=== PATIENT | female | born 1975 | race African-American/Black ===

== ENCOUNTER 2016-10-11 10:49 | Observation (INO) | payer OTHER ==
[2016-10-11 10:58] VITALS: BMI 23.8
[2016-10-11] MEDS ORDERED: Sodium Chloride 0.9% 1,000 ML IV SCH (11:15)
--- NOTE | 2016-10-11 11:23 | ED PDOC ---
HPI: Abdomen Time Seen by Provider: 10/11/16 11:05 Chief Complaint (Nursing): Abdominal Pain Chief Complaint (Provider): Abdominal Pain History Per: Patient History/Exam Limitations: no limitations Onset/Duration Of Symptoms: Hrs Current Symptoms Are (Timing): Still Present Severity: Mild Location Of Pain/Discomfort: RUQ, Epigastric Quality Of Discomfort: "Pain" Associated Symptoms: Nausea. denies: Urinary Symptoms Exacerbating Factors: None Alleviating Factors: None Additional Complaint(s): Patient is a 41 year old female who presents to ED for evaluation of upper abdominal cramps this morning after eating breakfast. Notes similar symptoms 1 week ago with spontaneous resolution. States she feels like there is gas in her esophagus. Reports pain is RUQ and epigastric, intermittent in nature and a 7/ 10 with no relief from Tums. Past Medical History Reviewed: Historical Data, Nursing Documentation, Vital Signs Vital Signs: Last Vital Signs Temp 98.1 F 10/11/16 10:56 Pulse 63 10/11/16 10:56 Resp 16 10/11/16 10:56 BP 120/75 10/11/16 10:56 Pulse Ox 100 10/11/16 13:02 - Medical History PMH: No Chronic Diseases - Surgical History Surgical History: No Surg Hx - Family History Family History: States: Other - Living Arrangements Living Arrangements: With Family - Social History Current smoker - smoking cessation education provided: No Alcohol: None Drugs: Denies - Allergies Allergies/Adverse Reactions: Allergies Allergy/AdvReac Type Severity Reaction Status Date / Time No Known Allergies Allergy Verified 10/11/16 11:10 Review of Systems ROS Statement: Except As Marked, All Systems Reviewed And Found Negative Constitutional: Negative for: Fever Gastrointestinal: Positive for: Nausea, Abdominal Pain. Negative for: Vomiting , Diarrhea Genitourinary Female: Negative for: Dysuria, Hematuria Musculoskeletal: Negative for: Neck Pain, Back Pain Neurological: Negative for: Weakness, Numbness Physical Exam - Reviewed Nursing Documentation Reviewed: Yes Vital Signs Reviewed: Yes - Physical Exam Appears: Positive for: Non-toxic, No Acute Distress Skin: Positive for: Normal Color, Warm Eye Exam: Positive for: Normal appearance Neck: Positive for: Normal, Painless ROM Cardiovascular/Chest: Positive for: Regular Rate, Rhythm. Negative for: Murmur Respiratory: Positive for: Normal Breath Sounds. Negative for: Respiratory Distress Gastrointestinal/Abdominal: Positive for: Soft, Tenderness (RUQ and mid epigastric). Negative for: Distended, Guarding, Rebound Back: Positive for: Normal Inspection. Negative for: L CVA Tenderness, R CVA Tenderness Extremity: Positive for: Normal ROM Neurologic/Psych: Positive for: Alert, Oriented - Laboratory Results Result Diagrams: 10/11/16 11:31 10/11/16 11:31 - ECG O2 Sat by Pulse Oximetry: 100 (RA) Pulse Ox Interpretation: Normal Medical Decision Making Medical Decision Making: Time: 1105 Initial impression: Abdominal pain r/o gallbladder disease Initial plan: -- EKG -- Amylase -- CMP -- Lipase -- NPO diet -- Urine preg -- CBC -- NSF and Pepcid -- U/A -- U/S Scribe Attestation: Documented by Janneth Matias acting as a scribe for Tong Mcgraw MD MD Scribe Attestation: All medical record entries made by the Scribe were at my direction and personally dictated by me. I have reviewed the chart and agree that the record accurately reflects my personal performance of the history, physical exam, medical decision making, and the department course for this patient. I have also personally directed, reviewed, and agree with the discharge instructions and disposition. ED OBSERVATION Date of observation admission: 10/11/16 Time of observation admission: 13:02 - Observation admission statement Patient is being placed in observation because:: Patient is still symptomatic. Needs further evaluation. - Goals of Observation Goals of observation are:: Improvement of symptoms. Need to confirm (by CT) that there is no emergency medical condition Disposition - Clinical Impression Clinical Impression: Undifferentiated abdominal pain - Patient ED Disposition Is Patient to be Admitted: Transfer of Care - Disposition Disposition Time: 15:15 Condition: FAIR Patient Signed Over To: Ashley العلي Handoff Comments: To follow up CT results - POA Present On Arrival: None
[2016-10-11 11:37] LABS: BASO # 0.1 K/uL (0.0-0.2); BASO % 0.5 % (0.0-2.0); EOS # 0.1 K/uL (0.0-0.7); EOS % 0.8 % (0.0-4.0); LYMPH # 1.2 K/uL (1.0-4.3); LYMPH % 9.8 % (20.0-40.0); MEAN CELL VOLUME 84.4 fl (81.0-99.0); MEAN CORPUSCULAR HEMOGLOBIN 27.7 pg (27.0-31.0); MEAN CORPUSCULAR HGB CONC 32.9 g/dL (33.0-37.0); MEAN PLATELET VOLUME 8.7 fl (7.2-11.7); MONO # 0.7 K/uL (0.0-0.8); MONO % 5.8 % (0.0-10.0); NEUT # 10.2 K/uL (1.8-7.0); NEUT % 83.1 % (50.0-75.0); PLATELET COUNT 370 K/uL (130-400); RED CELL DISTRIBUTION WIDTH 13.5 % (11.5-14.5); WHITE BLOOD COUNT 12.2 K/uL (4.8-10.8)
[2016-10-11 11:45] LABS: ALB/GLOB RATIO 1.2 (1.0-2.1); ALKALINE PHOSPHATASE 102 U/L (38-126); ALT/SGPT 51 U/L (9-52); AMYLASE 67 U/L (30-110); AST/SGOT 30 U/L (14-36); BILIRUBIN,TOTAL 0.4 mg/dl (0.2-1.3); BLOOD UREA NITROGEN 9 mg/dl (7-17); CALCIUM 9.4 mg/dL (8.4-10.2); CARBON DIOXIDE 26 mmol/L (22-30); CHLORIDE 101 mmol/L (98-107); GFR AFRICAN-AMERICAN > 60; GLUCOSE,RANDOM 101 mg/dL (65-105); LIPASE 174 U/L (23-300); POTASSIUM 4.2 MMOL/L (3.6-5.0); SODIUM 139 mmol/l (132-148); TOTAL PROTEIN 8.4 G/DL (6.3-8.2)
[2016-10-11 12:01] LABS: NEUTROPHIL 81 % (42-75); TOTAL CELLS COUNTED 100
[2016-10-11 12:16] LABS: RBC URINE 3 /hpf (0-3); URINE BACTERIA RARE (<OCC); URINE BILIRUBIN NEGATIVE (NEGATIVE); URINE BLOOD NEGATIVE (NEGATIVE); URINE COLOR YELLOW (YELLOW); URINE GLUCOSE (UA) NEG (Normal); URINE KETONE NEGATIVE (NEGATIVE); URINE LEUKOCYTE ESTERASE NEG Leu/uL (Negative); URINE PROTEIN NEGATIVE (NEGATIVE); URINE UROBILINOGEN 0.2-1.0 mg/dL (0.2-1.0); WBC URINE 1 /hpf (0-5)
--- NOTE | 2016-10-11 12:53 | US ---
HISTORY: RUQ pain; r/o cholecystitis COMPARISON: None available TECHNIQUE: Sonographic evaluation of the right upper quadrant of the abdomen. FINDINGS: LIVER: Measures 15.9 cm in length. Heterogeneous echogenic echotexture. Suspected focal fatty sparing. The main portal vein appears patent with normal directional flow. No intrahepatic bile duct dilatation. GALLBLADDER: No gallstones. No gallbladder wall thickening or pericholecystic edema. Negative sonographic Jones's sign as assessed by the quick print operator. COMMON BILE DUCT: Measures 4 mm PANCREAS: Not well-visualized. RIGHT KIDNEY: Measures approximately 9.3 x 4.8 x 3.5 cm. No obstructing calculus or hydronephrosis identified. AORTA: Limited visualization appears grossly unremarkable. IVC: Limited visualization appears grossly unremarkable. OTHER FINDINGS: None . IMPRESSION: Heterogeneous echogenic echotexture. Echogenic liver may be seen in setting of hepatic parenchymal disease or fatty infiltration. Suspected focal fatty sparing. No gallstones. No gallbladder wall thickening or pericholecystic edema. Negative sonographic Jones's sign as assessed by the quick print operator.
[2016-10-11] MEDS ORDERED: Iohexol 240 (50 ml) PO ONE (12:59)
[2016-10-11] MEDS ORDERED: Iohexol 240 (50 ml) ONE (13:05)
[2016-10-11] MEDS ORDERED: Sucralfate 1 gm/10 ml Oral Susp UD ONE (14:27)
[2016-10-11] MEDS ORDERED: Sucralfate 1 gm/10 ml Oral Susp UD PO STA (14:29)
--- NOTE | 2016-10-11 15:17 | ED PDOC ---
- Laboratory Results Result Diagrams: 10/11/16 11:31 10/11/16 11:31 - ECG O2 Sat by Pulse Oximetry: 100 (RA) Medical Decision Making Medical Decision Makin: Patient signed over to me from Dr. Mcgraw pending CT; Will follow up with CT and reassess for final ER Dispo. Accession No. : [id number] Patient Name / ID : GREGG HAMM / [id number] Exam Date : 10/11/2016 15:40:21 ( Approved ) Study Comment : Sex / Age : F / 41Y Creator : Annie Caldera MD Dictator : Annie Caldera MD Plugger Man : Dance Hall Host/Hostess : Annie Caldera MD Approver2 : Report Date : 10/11/2016 16:34:23 My Comment : PROCEDURE: CT Abdomen and Pelvis with oral and IV contrast. HISTORY: c/o right upper quadrant mid-abdomen pain COMPARISON: Limited abdominal ultrasound performed 10/11/16 TECHNIQUE: Contiguous axial images of the abdomen and pelvis. Oral and IV contrast was administered. Coronal and Sagittal reformats generated and reviewed. Contrast dose: 90 mL Omnipaque 300 Radiation dose: Total exam DLP = 398.51 mGy-cm. This CT exam was performed using one or more of the following dose reduction techniques: Automated exposure control, adjustment of the mA and/or kV according to patient size, and/or use of iterative reconstruction technique. FINDINGS: LOWER THORAX: No visible consolidation, pleural effusion, or pneumothorax. LIVER: Hypoattenuation of the liver compatible with hepatic steatosis. GALLBLADDER AND BILE DUCTS: Unremarkable. PANCREAS: Unremarkable. SPLEEN: Unremarkable. ADRENALS: Unremarkable. KIDNEYS AND URETERS: The kidneys enhance symmetrically. No hydronephrosis or obstructing renal calculus. BLADDER: Distended urinary bladder appears otherwise grossly unremarkable. REPRODUCTIVE: Uterus is present. Probable small bilateral ovarian follicles/cysts. APPENDIX: A normal appendix is not definitively visualized. BOWEL: The stomach is nondistended. Dilated small bowel loops in the right abdomen with fecalization of the ileum to the level of the ileocecal valve (more proximal small bowel loops within the left abdomen appear decompressed. ; Early mechanical obstruction cannot be excluded. Additionally, there is wall thickening of the cecum/proximal right colon; correlate clinically for possibility of colitis (i.e. infectious, inflammatory, ischemic). PERITONEUM: Small free fluid in the right pericolic gutter. No definite free air. LYMPH NODES: Sub cm right lower quadrant/mesenteric lymph nodes, nonspecific. VASCULATURE: No aortic aneurysm. BONES: Degenerative changes of the spine. Partial fusion of the L4-L5 vertebral bodies. OTHER FINDINGS: None. IMPRESSION: Dilated small bowel loops in the right abdomen with fecalization involving the distal ileum extending the level of the ileocecal valve : Early mechanical obstruction cannot be excluded. Correlate clinically. Wall thickening of the cecum/proximal right colon; correlate clinically for colitis (i.e. infectious, inflammatory, ischemic). Small fluid in the right pericolic gutter. Probable bilateral ovarian follicles/cysts. Hepatic steatosis. Sub cm right lower quadrant/mesenteric lymph nodes, nonspecific. Additional findings as above. Findings discussed with Dr. Reyes on 10/11/16 at 4:20 p.m. 430p DW pt findings. On reevaluation pt is markedly better. Tolerated the PO contrast without difficulty. Abdomen is soft and nontender. Reviewed findings with patient and mandatory GI follow up for possible inflammatory bowel disease. Documented by Carlos Andre acting as a scribe for Ashley العلي MD. Provider Scribe Attestation: All medical record entries made by the Scribe were at my direction and personally dictated by me. I have reviewed the chart and agree that the record accurately reflects my personal performance of the history, physical exam, medical decision making, and the department course for this patient. I have also personally directed, reviewed, and agree with the discharge instructions and disposition. Disposition - Clinical Impression Clinical Impression: Colitis - POA Present On Arrival: None - Disposition Disposition: Routine/Home Disposition Time: 15:00 Condition: IMPROVED
[2016-10-11] MEDS ORDERED: Iohexol 300 100 ML IJ ONE (15:32)
[2016-10-11] MEDS ORDERED: Sodium Chloride 0.9% 50 ML IV ONE (15:32)
--- NOTE | 2016-10-11 16:35 | CT ---
PROCEDURE: CT Abdomen and Pelvis with oral and IV contrast. HISTORY: c/o right upper quadrant mid-abdomen pain COMPARISON: Limited abdominal ultrasound performed 10/11/16 TECHNIQUE: Contiguous axial images of the abdomen and pelvis. Oral and IV contrast was administered. Coronal and Sagittal reformats generated and reviewed. Contrast dose: 90 mL Omnipaque 300 Radiation dose: Total exam DLP = 398.51 mGy-cm. This CT exam was performed using one or more of the following dose reduction techniques: Automated exposure control, adjustment of the mA and/or kV according to patient size, and/or use of iterative reconstruction technique. FINDINGS: LOWER THORAX: No visible consolidation, pleural effusion, or pneumothorax. LIVER: Hypoattenuation of the liver compatible with hepatic steatosis. GALLBLADDER AND BILE DUCTS: Unremarkable. PANCREAS: Unremarkable. SPLEEN: Unremarkable. ADRENALS: Unremarkable. KIDNEYS AND URETERS: The kidneys enhance symmetrically. No hydronephrosis or obstructing renal calculus. BLADDER: Distended urinary bladder appears otherwise grossly unremarkable. REPRODUCTIVE: Uterus is present. Probable small bilateral ovarian follicles/cysts. APPENDIX: A normal appendix is not definitively visualized. BOWEL: The stomach is nondistended. Dilated small bowel loops in the right abdomen with fecalization of the ileum to the level of the ileocecal valve (more proximal small bowel loops within the left abdomen appear decompressed. ; Early mechanical obstruction cannot be excluded. Additionally, there is wall thickening of the cecum/proximal right colon; correlate clinically for possibility of colitis (i.e. infectious, inflammatory, ischemic). PERITONEUM: Small free fluid in the right pericolic gutter. No definite free air. LYMPH NODES: Sub cm right lower quadrant/mesenteric lymph nodes, nonspecific. VASCULATURE: No aortic aneurysm. BONES: Degenerative changes of the spine. Partial fusion of the L4-L5 vertebral bodies. OTHER FINDINGS: None. IMPRESSION: Dilated small bowel loops in the right abdomen with fecalization involving the distal ileum extending the level of the ileocecal valve : Early mechanical obstruction cannot be excluded. Correlate clinically. Wall thickening of the cecum/proximal right colon; correlate clinically for colitis (i.e. infectious, inflammatory, ischemic). Small fluid in the right pericolic gutter. Probable bilateral ovarian follicles/cysts. Hepatic steatosis. Sub cm right lower quadrant/mesenteric lymph nodes, nonspecific. Additional findings as above. Findings discussed with Dr. Reyes on 10/11/16 at 4:20 p.m.
[2016-10-11 17:00] VITALS: BP 120/76; PULSE 76; RESP 19; TEMP 97.6
--- NOTE | 2016-10-11 19:26 | CARD ---
APPROVED REPORT EKG Measurement Heart [id number] <Conclusion> Normal sinus rhythm Normal ECG
[2016-10-13 15:36] VITALS: O2SAT 100
== END 2016-10-11 16:54 | disposition home or self-care (01) ==
LOC: H.ER 10:49 → H.EROBSV 13:00
PROVIDERS: ADMIT Emergency Medicine; ATTEND Emergency Medicine
DX: K52.9 Noninfective gastroenteritis and colitis, unspecified (principal); K76.0 Fatty (change of) liver, not elsewhere classified